=== PATIENT | male | born 1945 | race Caucasian/White ===

== ENCOUNTER 2023-11-11 13:29 | Emergency (ER) | payer OTHER, SELFPAY ==
[2023-11-11 14:17] LABS: % Basophils 0.1 % (0-2); % Immature Granulocytes 0.7 % (0-0.5); % Lymphocytes 10.2 % (20.5-51.1); % Monocytes 7.6 % (1.7-9.3); % Neutrophils 81.4 % (42.2-75.2); Absolute Immature Granulocytes 0.1 10^3/uL (0-0.05); Absolute Lymphocytes 0.7 10^3/uL (1.2-3.4); Absolute Monocytes 0.5 10^3/uL (0.1-0.6); Absolute Neutrophils 5.8 10^3/uL (1.4-6.5); Hematocrit 38.3 % (39.0-52.0); Hemoglobin 13.5 g/dL (13.0-18.0); Mean Corp Hgb Conc. 35.2 g/dL (33.0-37.0); Mean Platelet Volume 10.1 fL (7.4-10.4); Nucleated Red Blood Cells % 0 % (-); Platelet Count 148 10^3/uL (130-400); Red Blood Cell Count 4.35 10^6/uL (4.70-6.10); Red Cell Dist. Width 13.2 % (11.5-14.5); White Blood Cell Count 7.1 10^3/uL (4.8-10.8)
[2023-11-11 14:29] LABS: COVID-19 Antigen Negative (Negative)
[2023-11-11 15:28] LABS: ALT (SGPT) 46 U/L (0-50); AST (SGOT) 65 U/L (17-59); Albumin 3.9 g/dl (3.5-5.0); Alkaline Phosphatase 81 U/L (38-126); Blood Urea Nitrogen 27 mg/dl (9-20); Calcium 8.6 mg/dl (8.4-10.2); Carbon Dioxide 22 mmol/L (22-30); Chloride 99 mmol/L (98-107); Glucose 113 mg/dl (70-99); Potassium 4.4 mmol/L (3.5-5.1); Sodium 129 mmol/L (135-145); Total Bilirubin 1.7 mg/dl (0.2-1.3); Total Protein 6.5 g/dl (6.3-8.2); eGFR 44.38
[2023-11-11 17:31] VITALS: BP 122/76
[2023-11-11 18:00] VITALS: BP 133/75
[2023-11-11] MEDS: TYLENOL 1000 MG PO (18:14)
[2023-11-11] MEDS: DUONEB 3 ML INH (18:14)
[2023-11-11] MEDS: DECADRON 10 MG IV (18:15)
[2023-11-11] MEDS: NSS 1000 IV (18:16)
--- NOTE | 2023-11-11 18:24 | ED.GENMED ---
History of Present Illness
General
Chief Complaint: Fever
Source: patient
Exam Limitations: none
Time Seen by Provider: 11/11/23 17:12
Nursing documentation reviewed up to this point in time: agreed with
Travel History
Have you had any contact with someone who has COVID-19?: No
Do you have any symptoms of coronavirus? Fever > 100 degrees, chills, cough, shortness of breath, sore throat, loss of taste or smell, muscle aches, or headache?: No
History of Present Illness
History of Present Illness:
78-year-old male PAF, on meds and a blood thinner, presents with 1 week of cough fatigue fever decreased p.o. intake malaise some nausea without vomiting, he did get a flu shot this year,
He believes he may be went into A-fib a few days ago, said no sick contacts, came in today for evaluation concerned that he is not eating or drinking enough that he may be dehydrated
Past History
Past History
ED Past Medical History: Arrthythmia
Social History
Tobacco: Non-smoker
Alcohol: None
Drug: None
Living: with family
Employment: Retired
Review of Systems
Review of Systems
All Other Systems: Not applicable
Constitutional: Reports fever and fatigue
EENT: Reports no symptoms
Respiratory: Reports cough and trouble breathing
Cardiac: Reports no symptoms
ABD/GI: Reports nausea and anorexia
: Reports no symptoms
Musculoskeletal: Reports muscle pain
Skin: Reports no symptoms
Neurological: Reports dizzy and weakness
Endocrine: Reports no symptoms
Hematologic/Lymphatic: Reports no symptoms
Phy Exam
Physical Exam
Physical Exam:
Physical Exam
General: no apparent distress, not acutely ill
Neck: Lips are slightly dry
Heart: Regular
Lungs: Faint expiratory wheeze
Abdomen: Nontender
Neuro: alert and oriented. no focal neurological deficits
Skin: no rash
Psychiatric: well kept. interactive and cooperative
Extremities: no edema. no calf tenderness.
Course
Orders/Labs/Results
Orders:
Orders
11/11/23 13:54
CR Chest - 2 Views Urgent
Comment:
Reason For Exam: cough, fatigue for 1 week.
11/11/23 14:00
COVID-19 Antigen Urgent
Source: Nasal Swab
Complete Blood Count/With Diff Urgent
Comprehensive Metabolic Panel Urgent
Influenza A+B Rapid Molecular Urgent
NAHUN Source: Nasal Swab
Specimen Description:
11/11/23 17:52
0.9% Sodium Chloride 1000 ml [Nss] 1,000 ml IV BOLUS
Acetaminophen [Tylenol] 1,000 mg PO NOW STA
Dexamethasone Sod Phosphate [Decadron] 10 mg IV NOW STA
Ipratropium/Albuterol Sulfate [Duoneb] 3 ml INH R NOW STA
Abnormal Lab Results
11/11/23
14:00
RBC 4.35 L 10^6/uL
(4.70-6.10)
Hct 38.3 L %
(39.0-52.0)
Abs Immat Gran (auto) 0.1 H 10^3/uL
(0-0.05)
Absolute Lymphs (auto) 0.7 L 10^3/uL
(1.2-3.4)
Immature Gran % 0.7 H %
(0-0.5)
Neutrophils % 81.4 H %
(42.2-75.2)
Lymphocytes % 10.2 L %
(20.5-51.1)
Sodium 129 L mmol/L
(135-145)
BUN 27 H mg/dl
(9-20)
Creatinine 1.6 H mg/dL
(0.7-1.3)
Glucose 113 H mg/dl
(70-99)
Total Bilirubin 1.7 H mg/dl
(0.2-1.3)
AST 65 H U/L
(17-59)
11/11/23 14:00
11/11/23 14:00
Vital Signs
Initial and Last Documented VS:
Initial Vital Signs
Temp Pulse Resp Pulse Ox
98.3 F 94 18 93
11/11/23 13:49 11/11/23 13:49 11/11/23 13:49 11/11/23 13:49
Last Documented Vital Signs
Temp Pulse Resp BP Pulse Ox
98.3 F 85 22 133/75 94
11/11/23 13:49 11/11/23 18:15 11/11/23 18:15 11/11/23 18:00 11/11/23 18:15
MDM/Problems Addressed
Differential Diagnosis Includes:
Pneumonia viral syndrome COVID influenza bronchitis
MDM/Problems Addressed:
Cough fatigue fever
*Radiology
Radiology exam reviewed: radiology read reviewed
*Pulse Oximetry
Patient hypoxic: no
*EKG
Interpreted by ED Provider?: Yes
Interpretation: normal
Comparison EKG: no comparison EKG present
Heart Rate: 78
Rate: normal
Rhythm: sinus
Ischemia: no ischemia
*Overnight Stocker Interpretation
Rate: normal
Interpretation: normal
Heart Rate: 78
Rhythm: sinus
*Critical Care Note
Total Time (30-74mins, 75-104mins- exclusive of procedures): Not Applicable
Update Note
Update Note:
Update labs noted sodium is down a bit, chest x-ray report noted, influenza positive which fits clinically will treat with saline Tylenol dose of steroids has been sick for a week no indication for Tamiflu
ED Attending Note
-
Portions of this chart may have been created with voice recognition software.� Occasional wrong word or��sound alike� substitutions may have occurred due to the inherent limitations of voice recognition software.
Discharge Plan
Departure
Patient Disposition: Home (Routine Discharge)
Date of Disposition: 11/11/23
Time of Disposition: 18:34
Patient with high blood pressure during this ER visit?: No
Condition: Good
Covid-19: Not Applicable
Discharge Problem:
Influenza A
Instructions: Fever, Adult (DC), Viral Syndrome (DC)
Prescriptions:
New
albuterol sulfate [ProAir HFA] 90 mcg/actuation HFA aerosol inhaler
2 puff inhalation Q6H PRN (Reason: shortness of breath or wheezing) Qty: 8.5 0RF
Referrals:
Toby Davis, DO [Family Provider] -
Interventions
Interventions:
*Risk Screen - Suicide Last Done: 11/11/23 13:49
*General Assessment Last Done: 11/11/23 13:49
*Neglect/Abuse Screening Last Done: 11/11/23 13:49
ED- Fall Risk Assessment Last Done: 11/11/23 17:24
*ED COVID-19 Vaccine History Last Done: 11/11/23 17:24
ED- Neurological Assessment Last Done: 11/11/23 17:24
ED-Skin Assessment Last Done: 11/11/23 17:24
Discharge Date and Time
Print Language: NEPALI
[2023-11-11 19:00] VITALS: BP 117/56
== END 2023-11-11 20:00 | disposition home or self-care (01) ==
LOC: EMR 13:29
PROVIDERS: Emergency Medicine; EMERGENCY PHYSICIAN Emergency Medicine; FAMILY PHYSICIAN Family Medicine
DX: J10.1 Influenza due to other identified influenza virus with other respiratory manifestations (principal); Z11.52 Encounter for screening for COVID-19
CPT/HCPCS: 99284; 96374; 96361; 94640; 71046; 80053; 85025; 87502; 87811